=== PATIENT | female | born 1990 ===

== ENCOUNTER → 2024-06-20 | Outpatient (CLI) | payer OTHER ==
--- NOTE | 2024-06-20 15:22 | DVH ---
CLINICAL INDICATION: R/O FX TECHNIQUE: XY L WRIST 3+ VIEW XRAY Comparison: None FINDINGS/IMPRESSION: : There is no evidence of acute fracture or dislocation. Soft tissues are unremarkable.
== END | disposition home or self-care (01) ==
LOC: Rad HDHVI 12:31
PROVIDERS: ATTEND Internal Medicine Cardiovascular Disease
DX: H05.20 Unspecified exophthalmos (principal)
CPT/HCPCS: 73110